=== PATIENT | male | born 1995 | race Caucasian/White ===

== ENCOUNTER 2018-04-07 18:26 | Emergency (ER) | payer OTHER, SELFPAY ==
[2018-04-07 18:27] VITALS: BP 134/86; PULSE 87; RESP 19; TEMP 37.2; O2SAT 97; BMI 33.0
[2018-04-07] MEDS: Ondansetron 4 MG/2 ML Vial IV (19:35)
[2018-04-07 19:36] LABS: Absolute Lymphocyte Count 3.76 X10^3/ul (0.83-4.51); Absolute Neutrophil Count 7.1 X10^3/uL (2.0-7.7); Basophil% 0.8 % (0-1); Eosinophil# 0.21 X10^3/uL; Eosinophils% 1.7 % (0-5); Hematocrit 43.1 % (40-54); Hemoglobin 15.1 g/dl (13.0-16.5); Lymphocyte # 3.76 X10^3/ul (4.0); Lymphocyte % 31.1 % (19-41); Mean Corpuscular Hgb 28.9 pg (27.0-32.0); Mean Corpuscular Volume 82.6 fL (80-94); Monocyte# 0.87 X10^3/uL; Monocyte% 7.2 % (0-10); Neutrophil # 7.13 X10^3/uL (2.7-7.7); Platelet Count 238 K/mm3 (150-450); RBC Distribution Width CV 12.8 % (11.6-14.6); RBC Distribution Width SD 38.5 fl (35.1-43.9); Red Blood Count 5.22 M/mm3 (4.6-6.2); White Blood Count 12.1 K/mm3 (4.4-11.0)
[2018-04-07] MEDS: Ketorolac 30 MG/ML Syringe IV (19:36)
[2018-04-07] MEDS: 0.9% Normal Saline 1,000 ML 250 ML IV (19:36)
[2018-04-07] MEDS: Morphine 4 MG/ML Syringe IV (19:36)
[2018-04-07 19:37] LABS: POSITIVE COUNT NO; POSITIVE DIFFERENTIAL NO; POSITIVE MORPHOLOGY NO
[2018-04-07 20:25] LABS: Anion Gap 11 (5-15); BUN 19 mg/dL (7-18); BUN/Creat Ratio 15.4 RATIO (10-20); Chloride 109 mmol/L (98-107); Creatinine, Serum 1.23 mg/dL (0.70-1.30); EST Glomerular Filtration Rate 77 mL/min (>60); Est Glom Filt Rate - Afr Amer 93 mL/min (>60); Estimated Creatinine Clearance 96.44 ml/min; Glucose 136 mg/dL (74-106); Potassium 3.9 mmol/L (3.5-5.1); Sodium Level 143 mmol/L (136-145)
[2018-04-07 20:44] LABS: Bacteria 0 SEEN /hpf (None Seen); Mucous, Urine 0 SEEN /hpf (<or=2+); Squamous Epithelial Cells - UA 0 SEEN /hpf (0-5)
[2018-04-07 20:46] LABS: Color, Urine Yellow (Yellow); Glucose, Dipstick Normal (Normal); Ketone-Dipstick 15 mg/dl (Negative); Leukocyte Esterase-Dipstick 25 /ul (Negative); Nitrite-Dipstick Negative (Negative); Occult Blood-Urine 250 /ul (Negative); Protein-Dipstick 30 mg/dl (Negative); Urine Clarity Cloudy (Clear); Urine Urobilinogen 1 mg/dl (Normal)
[2018-04-07 20:53] LABS: Urine Bilirubin Dipstick 1 mg/dL (Negative)
[2018-04-07 21:12] LABS: Red Blood Cells-Urine > 100 SEEN /hpf (0-5); White Blood Cells 0-5 SEEN /hpf (0-5)
--- NOTE | 2018-04-07 22:10 | ED.DCSUM_ITS ---
- ER Visit Summary Date of Service: 04/07/18 Chief Complaint: right flank pain History of Present Illness: The patient is a 22 M who presents for 1 hour of sudden severe right-sided flank pain. Patient was feeling well when he had sudden onset of right-sided flank pain. It is in the right flank radiating around into the right groin and right lower back. Patient vomited twice. He has had decreased urine output and noted his most recent urine was dark colored. He denies any fever but is sweaty with the pain. Patient has a remote history of one kidney stone. Physical Examination: Vital signs: afebrile, hemodynamically stable, no hypoxia on room air General: well nourished, well developed, appears very uncomfortable and is having difficulty staying still, sweaty Skin: warm, dry, no rash, no pallor HEENT: normocephalic and atraumatic; PERRL, EOMI, moist mucous membranes Cardiovascular: regular rate and rhythm without murmurs, no peripheral edema, 2 + pulses all distal extremities Respiratory: No increased work of breathing, lungs are clear to auscultation bilaterally, no rales, rhonchi or wheezing Abdominal: Abdomen is soft, right flank is tender with normoactive bowel sounds , no guarding or rebound, no masses MSK: Moves all extremities, no deformities, normal strength Neuro: Awake and alert, oriented ?4. No facial droop, sensation and motor function intact and symmetric Test Results: Abnormal Lab Results 04/07/18 04/07/18 04/07/18 18:38 18:38 20:01 WBC 12.1 H RBC 5.22 Hgb 15.1 Hct 43.1 MCV 82.6 MCH 28.9 MCHC 35.0 RDW 12.8 RDW Differential 38.5 Plt Count 238 MPV 12.0 Immature Gran % (Auto) 0.200 Neut % (Auto) 59.0 Lymph % (Auto) 31.1 [place] % (Auto) 7.2 Eos % (Auto) 1.7 Baso % (Auto) 0.8 Absolute Neuts (auto) 7.1 Absolute Lymphs (auto) 3.76 Total Counted Not Reportable Sodium Cancelled 143 Potassium Cancelled 3.9 Chloride Cancelled 109 H Carbon Dioxide Cancelled 23.0 Anion Gap Cancelled 11 BUN Cancelled 19 H Creatinine Cancelled 1.23 Estim Creat Clear Calc Cancelled 96.44 Est GFR (MDRD) Af Amer Cancelled 93 Est GFR (MDRD) Non-Af Cancelled 77 BUN/Creatinine Ratio Cancelled 15.4 Glucose Cancelled 136 H Calcium Cancelled 9.0 Urine Color Urine Clarity Urine pH Ur Specific [place] Urine Protein Urine Glucose (UA) Urine Ketones Urine Occult Blood Urine Nitrite Urine Bilirubin Urine Urobilinogen Ur Leukocyte Esterase Urine RBC Urine WBC Ur Squamous Epith Cells Urine Bacteria Urine Mucus 04/07/18 20:25 WBC RBC Hgb Hct MCV MCH MCHC RDW RDW Differential Plt Count MPV Immature Gran % (Auto) Neut % (Auto) Lymph % (Auto) [place] % (Auto) Eos % (Auto) Baso % (Auto) Absolute Neuts (auto) Absolute Lymphs (auto) Total Counted Sodium Potassium Chloride Carbon Dioxide Anion Gap BUN Creatinine Estim Creat Clear Calc Est GFR (MDRD) Af Amer Est GFR (MDRD) Non-Af BUN/Creatinine Ratio Glucose Calcium Urine Color Yellow Urine Clarity Cloudy Urine pH 7.0 Ur Specific [place] 1.010 Urine Protein 30 H Urine Glucose (UA) Normal Urine Ketones 15 H Urine Occult Blood 250 H Urine Nitrite Negative Urine Bilirubin 1 H Urine Urobilinogen 1 H Ur Leukocyte Esterase 25 H Urine RBC > 100 SEEN Urine WBC 0-5 SEEN Ur Squamous Epith Cells 0 SEEN Urine Bacteria 0 SEEN Urine Mucus 0 SEEN Clinical Impression(s) from Imaging Studies Abdomen/Pelvis CT 04/07/18 19:23 IMPRESSION: 1. A 2 mm stone in the right proximal ureter, with mild right hydronephrosis. Otherwise, unremarkable study. Electronically Signed: Clementine Wang MD at 20:14 EDT Tel , Service support , Medications Given Discontinued Medications Hydrocodone Bitart/Acetaminophen ([place] 5mg-325mg) 1 tablet PO X1 ONE Stop: 04/07/18 22:08 Last Admin: 04/07/18 22:27 Dose: 1 tablet Sodium Chloride () 1,000 mls @ 250 mls/hr IV .Q4H SVETLANA Last Admin: 04/07/18 19:36 Dose: 250 mls/hr Ketorolac Tromethamine (Toradol) 30 mg IV X1 ONE Stop: 04/07/18 19:24 Last Admin: 04/07/18 19:36 Dose: 30 mg Morphine Sulfate () 4 mg IV X1 ONE Stop: 04/07/18 19:24 Last Admin: 04/07/18 19:36 Dose: 4 mg Ondansetron HCl (Zofran) 4 mg IV X1 ONE Stop: 04/07/18 19:24 Last Admin: 04/07/18 19:35 Dose: 4 mg Ondansetron HCl (Zofran Odt) 4 mg PO TAKE HOME MED ONE Stop: 04/07/18 22:09 Last Admin: 04/07/18 22:27 Dose: 4 mg Emergency Department Course and Treatment: Patient presents with symptoms that are most consistent with ureteral colic. Patient was given Toradol, Zofran and morphine for symptomatic relief with good improvement in his pain. Patient had mild leukocytosis of 12. Urine was positive for hematuria but negative for infection. Patient was afebrile. CT flank showed a 2 mm proximal right ureteral stone. After receiving pain medication, patient was much more comfortable and had symptoms mostly resolved with the occasional sharp pain. Patient was given a urine strainer. He was given a prescription for naproxen, [place] and Zofran. He was discharged home with return precautions and follow-up with urology. Treatment Plan: [] Disposition: [] Impression: right ureteral stone, 2 mm, with ureteral colic This note was generated with [employer] dictation software. It may contain incorrect words, spelling, and punctuation that were not noted in review of the chart prior to signing ED Disposition - Plan for ED Patient: Disposition: Home or Assisted Living Chief Complaint: Flank Pain Instructions: ED Stone Renal W Colic Prescriptions: Ondansetron [Zofran Odt] 4 mg PO Q8H PRN PRN #10 tab PRN Reason: Nausea Hydrocodone/Acetaminophen [[place] 5-325 Tablet] 1 - 2 ea PO 4X/DAY PRN PRN 3 Days #12 tab PRN Reason: Pain Naproxen [Naprosyn] 500 mg PO BID PRN #20 tab Referrals: Bienvenido Hansen III, MD [Primary Care Provider] - 3-5 Days if not improving Aidan Kauffman MD [STAFF PHYSICIAN] - 1 Week if not improving Additional Instructions: You are passing a kidney stone on the right. Use the pain medications as prescribed as needed. [place] the [place] for severe pain. Use the Zofran as needed for nausea. If your pain is not well controlled on these medications at home or if you have any other concerns such as high fever, vomiting, inability to urinate, or other concerns, return to emergency department immediately for another evaluation.
[2018-04-07] MEDS: HYDROcodone Bitartrate/Apap 5/325 Tablet PO (22:27)
[2018-04-07] MEDS: Ondansetron ODT 4 MG Tablet PO (22:27)
[2018-04-07 22:29] VITALS: RESP 14
== END 2018-04-07 22:30 | disposition home or self-care (01) ==
PROVIDERS: Emergency Provider Emergency Medicine; Family Provider Family Medicine; PCP Family Medicine
DX: N13.2 Hydronephrosis with renal and ureteral calculous obstruction (principal); R31.9 Hematuria, unspecified; Z87.442 Personal history of urinary calculi
CPT/HCPCS: 74176; 80048; 81001; 85025; 96361; 96374; 96375; 99283; J7030; A4216; J2405

== ENCOUNTER 2018-04-09 10:15 | Observation (INO) | payer OTHER, BC, SELFPAY ==
[2018-04-09 10:17] VITALS: BP 156/106; PULSE 62; RESP 20; TEMP 36.5; BMI 32.3
[2018-04-09 10:36] LABS: Absolute Lymphocyte Count 1.13 X10^3/ul (0.83-4.51); Absolute Neutrophil Count 12.6 X10^3/uL (2.0-7.7); Basophil# 0.06 X10^3/uL; Basophil% 0.4 % (0-1); Eosinophil# 0.06 X10^3/uL; Eosinophils% 0.4 % (0-5); Hematocrit 42.6 % (40-54); Hemoglobin 15.3 g/dl (13.0-16.5); Lymphocyte # 1.13 X10^3/ul (4.0); Lymphocyte % 7.6 % (19-41); Mean Corp Hgb Conc 35.9 g/gl (32-36); Mean Corpuscular Volume 80.8 fL (80-94); Mean Platelet Vol. 11.5 fl (6.2-12.0); Monocyte# 1.06 X10^3/uL; Monocyte% 7.1 % (0-10); Neutrophil # 12.56 X10^3/uL (2.7-7.7); Neutrophil % 84.2 % (47-70); POSITIVE COUNT NO; POSITIVE DIFFERENTIAL NO; POSITIVE MORPHOLOGY NO; Platelet Count 233 K/mm3 (150-450); RBC Distribution Width CV 12.7 % (11.6-14.6); RBC Distribution Width SD 37.4 fl (35.1-43.9); Red Blood Count 5.27 M/mm3 (4.6-6.2); White Blood Count 14.9 K/mm3 (4.4-11.0)
[2018-04-09] MEDS: 0.9% Normal Saline 1,000 ML 125 ML IV (10:40)
[2018-04-09] MEDS: Ondansetron 4 MG/2 ML Vial IV ×2 (10:40→13:18)
[2018-04-09] MEDS: Ketorolac 30 MG/ML Syringe IV ×3 (10:40→21:46)
[2018-04-09] MEDS: HYDROmorphone 1 MG/ML Syringe IV (10:40)
[2018-04-09 10:53] LABS: Anion Gap 9 (5-15); BUN 12 mg/dL (7-18); BUN/Creat Ratio 9.4 RATIO (10-20); Calcium,Total 8.7 mg/dL (8.5-10.1); Chloride 105 mmol/L (98-107); Creatinine, Serum 1.27 mg/dL (0.70-1.30); EST Glomerular Filtration Rate 74 mL/min (>60); Est Glom Filt Rate - Afr Amer 90 mL/min (>60); Estimated Creatinine Clearance 93.41 ml/min; Glucose 110 mg/dL (74-106); Potassium 3.9 mmol/L (3.5-5.1); Sodium Level 140 mmol/L (136-145)
[2018-04-09 12:15] LABS: Bacteria 0 SEEN /hpf (None Seen); Mucous, Urine 0 SEEN /hpf (<or=2+); Red Blood Cells-Urine 0 SEEN /hpf (0-5); Squamous Epithelial Cells - UA 0 SEEN /hpf (0-5); White Blood Cells 0 SEEN /hpf (0-5)
[2018-04-09 12:17] LABS: Color, Urine Yellow (Yellow); Glucose, Dipstick 50 mg/dl (Normal); Ketone-Dipstick 5 mg/dl (Negative); Leukocyte Esterase-Dipstick Negative /ul (Negative); Nitrite-Dipstick Negative (Negative); Occult Blood-Urine Negative /ul (Negative); Protein-Dipstick Negative (Negative); Specific Gravity, Urine 1.015 (1.002-1.030); Urine Bilirubin Dipstick Negative (Negative); Urine Clarity Sl. Cloudy (Clear); Urine Urobilinogen Normal (Normal)
[2018-04-09 12:23] LABS: Amorphous Sediment 1+
--- NOTE | 2018-04-09 12:47 | ED.VISSUMM ---
- ER Visit Summary Date of Service: 04/09/18 Chief Complaint: [Right flank pain] History of Present Illness: The patient is a 22 M [presents the emergency department with right flank pain ?2 days. Patient was seen in the emergency department 2 days ago and diagnosed with a right-sided kidney stone in the distal ureter measuring 2 mm. Patient was sent home with Naprosyn and [place] for pain however patient states that today the pain is not controlled and he vomited ?2 this morning. Patient denies any fever. He denies any blood in his urine. Patient states he has had kidney stones in the past and had to be admitted for pain control.] Physical Examination: [HEENT-PERRLA, EOMI. Cranial nerves II through XII grossly intact. TMs clear. Mucous membranes moist. No adenopathy. Cardiovascular-regular rate and rhythm without murmur or ectopy Lungs-clear to auscultation, chest wall stable without crepitus or subcu emphysema Abdomen-normoactive bowel sounds, soft. Patient does have tenderness palpation over right lower quadrant he has CVA tenderness on the right. There is no rebound, rigidity, or perineal signs. Extremities-intact ?4, normal range of motion, normal pulses, atraumatic] Test Results: [CBC with differential obtained showed a white count of 14.9, hemoglobin 15, hematocrit 43, platelets 233. Chemistries unremarkable. Urinalysis showed no evidence of infection.] Emergency Department Course and Treatment: [Patient was medicated with Toradol as well as Dilaudid and had good pain relief.] Treatment Plan: [Admit for pain control] Disposition: [Admit] Impression: [Kidney stone with colic Intractable pain-failed outpatient therapy] This note was generated with [employer] dictation software. It may contain incorrect words, spelling, and punctuation that were not noted in review of the chart prior to signing ED Disposition - Plan for ED Patient: Chief Complaint: Flank Pain Referrals: Bienvenido Hansen III, MD [Primary Care Provider] -
--- NOTE | 2018-04-09 12:49 | NURSING ---
315 OBS URETERIC COLIC REID
[2018-04-09 13:02] VITALS: BP 134/99; PULSE 76; RESP 14; O2SAT 99
[2018-04-09 13:30] VITALS: BMI 32.0
[2018-04-09 13:32] VITALS: BP 141/92; PULSE 94; RESP 16; TEMP 36.9; O2SAT 100
--- NOTE | 2018-04-09 14:46 | PCM.HP.STD ---
History of Present Illness Date of Admission: 04/09/18 The patient is a 22 year old M with a h/o kidney stones. presented to the ED 2 days ago with right sided flank pain and colic radiating to the groin. Was treated with analgesics and sent home on the same. Today pain became more severe with associated nausea and vomiting and unable to take his medications. He denies any fever or chills. had some difficulty urinating today with some dribbling. Never had any dysuria or hematuria Has been medicated at this time and is fairly comfortable.[] Past Medical History Allergies Sulfa (Sulfonamide Antibiotics) Allergy (Verified 04/09/18 10:16) Hives Home Medications: Ambulatory Orders Medication Instructions Recorded Hydrocodone/Acetaminophen [[place] 1 - 2 ea PO 4X/DAY PRN PRN 3 Days 04/07/18 5-325 Tablet] #12 tab Naproxen [Naprosyn] 500 mg PO BID PRN #20 tab 04/07/18 Ondansetron [Zofran Odt] 4 mg PO Q8H PRN PRN #10 tab 04/07/18 Smoking Status: Never smoker - *Family History Paternal History Items: - - kidney stones in father Review of Systems Constitutional: Denies: Anorexia, Chills, Fever, Night Sweats, Malaise, Weakness Cardiovascular: Denies: Chest Pain, Claudication, Chest Tightness Respiratory: Denies: Cough, Shortness of breath upon exertion Gastrointestinal: Reports: Nausea, Vomiting. Denies: Constipation, Diarrhea Genitourinary: Reports: Hesitancy, Retention. Denies: Dysuria Musculoskeletal: Denies: Arm Pain VTE Information - Inpt Only VTE Present on Admission: Yes - Physical Exam General: Alert, Oriented x3, Cooperative, No apparent distress, Well developed, Well nourished HEENT: Atraumatic Oral: Moist Mucosa Neck: Supple Lungs: Clear to auscultation Cardiovascular: Regular rate, Regular Rhythm, Normal S1, Normal S2, No murmurs, No Ectopic Activity, PMI Normal, No rub noted, No Gallop Abdomen: Bowel Sounds Present, Soft, Non Tender, Non-Distended, No Hepato-splenomegaly Extremities: No clubbing, No edema Skin: No rashes Musculoskeletal: No Tenderness to Palpation of Joints or Extremities Neurological: Cranial nerves II-XII grossly intact, Neuro grossly intact, Motor Exam 5/5 strength throughout Psych/Mental Status: Normal Affect, Appropriate Vital Signs Temp Pulse Resp BP Pulse Ox 98.4 F 94 16 141/92 H 100 04/09/18 13:32 04/09/18 13:32 04/09/18 13:32 04/09/18 13:32 04/09/18 13:32 Oxygen Delivery Method Room Air Weight: 101.151 kg Body Mass Index (BMI) 32.0 Assessment/Plan 1. Right sided ureteric colic secondary to ureteric calculus. CT showed 2mm stone in mid ureter. Do not expect this ti cause as much pain as patient describes Will continue with analgesics and IV fluids. Flomax to assist with passage. Antiemetics and other supportive care Encouraged to optimal and adequate hydration to help prevent future occurrences. Possibly discharge tomorrow 2. Obesity. Will cruise counselor on weight loss and lifestyle modifications 3. DVT prophylaxis. low risk. Encourage ambulation Code Visit OBSV E&M: 89291 Initial observation care L3
[2018-04-09] MEDS: Lactated Ringers 1,000 ML 125 ML IV (16:08)
[2018-04-09] MEDS: Tamsulosin HCl 0.4 MG Capsule PO (16:09)
--- NOTE | 2018-04-09 18:05 | NURSING ---
Walking to bathroom at this time. Denies further needs.
[2018-04-09 21:30] VITALS: BP 133/73; PULSE 83; RESP 16; TEMP 37.7; O2SAT 95
[2018-04-10 04:00] VITALS: BP 139/73; PULSE 83; RESP 16; TEMP 37.2; O2SAT 96
[2018-04-10] MEDS: Ketorolac 30 MG/ML Syringe IV ×2 (04:03→09:48)
[2018-04-10 06:11] LABS: Absolute Lymphocyte Count 1.34 X10^3/ul (0.83-4.51); Absolute Neutrophil Count 4.6 X10^3/uL (2.0-7.7); Basophil# 0.05 X10^3/uL; Basophil% 0.7 % (0-1); Eosinophil# 0.15 X10^3/uL; Eosinophils% 2.1 % (0-5); Hematocrit 39.3 % (40-54); Hemoglobin 13.8 g/dl (13.0-16.5); Lymphocyte # 1.34 X10^3/ul (4.0); Lymphocyte % 18.7 % (19-41); Mean Corp Hgb Conc 35.1 g/gl (32-36); Mean Corpuscular Hgb 28.6 pg (27.0-32.0); Mean Corpuscular Volume 81.5 fL (80-94); Mean Platelet Vol. 11.5 fl (6.2-12.0); Monocyte# 0.97 X10^3/uL; Monocyte% 13.5 % (0-10); Neutrophil # 4.63 X10^3/uL (2.7-7.7); Neutrophil % 64.7 % (47-70); Platelet Count 189 K/mm3 (150-450); RBC Distribution Width CV 12.7 % (11.6-14.6); RBC Distribution Width SD 37.1 fl (35.1-43.9); Red Blood Count 4.82 M/mm3 (4.6-6.2); White Blood Count 7.2 K/mm3 (4.4-11.0)
[2018-04-10 06:23] LABS: POSITIVE COUNT NO; POSITIVE DIFFERENTIAL NO; POSITIVE MORPHOLOGY NO
[2018-04-10] MEDS: 0.9% NaCl Peripheral Flush Adult/Peds IV (09:52)
[2018-04-10 09:57] VITALS: BP 132/75; PULSE 75; RESP 18; TEMP 37; O2SAT 98
--- NOTE | 2018-04-10 13:36 | PCM.DC ---
- Discharge Diagnoses Current Active Problems: acute ureteric colic You will use the following diet at home:: No restrictions, Regular Your food should be the consistency of: Regular Your liquids should be the consistency of: Regular/Thin Discharge Activity: Return to Normal Activity, No Restrictions, May Drive Return to work on:: 04/12/18 Additional Instructions: Drink losts and lots of water Allergies/Adverse Reactions: Allergies Sulfa (Sulfonamide Antibiotics) Allergy (Verified 04/09/18 10:16) Hives Medications to take at Discharge Ketorolac [Toradol] 10 mg PO TID #9 tab 04/10/18 proMETHazine tablet [Phenergan tablet] 25 mg PO Q8H PRN PRN #9 tab 04/10/18 The following prescriptions were given: proMETHazine tablet [Phenergan tablet] 25 mg PO Q8H PRN PRN #9 tab PRN Reason: Nausea/Vomiting Ketorolac [Toradol] 10 mg PO TID #9 tab Primary Care Physician: Bienvenido Hansen III, MD [Primary Care Provider] - Please follow up with your Primary Care Physician in: 1-2 weeks Test Results: Test results from this visit will be discussed in further detail at your follow-up appointment, if applicable. Proposed Discharge Date: 04/10/18
--- NOTE | 2018-04-10 13:38 | PCM.DC.SUM ---
Discharge Date and Diagnosis Date of Admission: 04/09/18 Date of Discharge: 04/10/18 - Primary Discharge Diagnosis ureteric calculus ureteric colic - Secondary Discharge Diagnosis urolithiasis Morbid Obesity Hospital Course and Treatment Operations: None Procedures: None Summary of Care Provided: The patient is a 22 year old M admitted on account of recurrent right sided ureteric colic. CT of the abdomen and pelvis had shown a 2mm stone in the mid ureter. Patient was treated with IV fluids and analgesics and antiemetics and flomax. Today patient is doing a whole lot better and is stable and able to be discharged.[] Discharge Diet: No Restrictions Discharge Activity: Return to Normal Activity, No Restrictions, May Drive Return to work on:: 04/12/18 Home Medications: Medications to take at Discharge Ketorolac [Toradol] 10 mg PO TID #9 tab 04/10/18 proMETHazine tablet [Phenergan tablet] 25 mg PO Q8H PRN PRN #9 tab 04/10/18 Following Prescrptions Were Given to Patient: proMETHazine tablet [Phenergan tablet] 25 mg PO Q8H PRN PRN #9 tab PRN Reason: Nausea/Vomiting Ketorolac [Toradol] 10 mg PO TID #9 tab Primary Care Physician: Bienvenido Hansen III, MD [Primary Care Provider] - Please follow up with your Primary Care Physician in: 1-2 weeks Minutes spent on discharge:: 30 Patient Condition:: Good Medical Necessity - Tobacco Use Smoking Status: Never smoker Meaningful Use Info Meaningful Use Diagnoses (Choose all that apply): None applicable Code Visit OBSV E&M: 99983 Observation care discharge
[2018-04-10 15:03] VITALS: BP 150/80; PULSE 89; RESP 18; O2SAT 98
== END 2018-04-10 15:06 | disposition home or self-care (01) ==
LOC: ED 10:30 → MS3 12:54
PROVIDERS: Admitting Provider Internal Medicine; Emergency Provider Emergency Medicine; Family Provider Family Medicine; PCP Family Medicine; Visit Provider Internal Medicine
DX: N20.1 Calculus of ureter (principal); E66.01 Morbid (severe) obesity due to excess calories; Z68.32 Body mass index [BMI] 32.0-32.9, adult; Z71.3 Dietary counseling and surveillance; Z87.442 Personal history of urinary calculi; Z79.899 Other long term (current) drug therapy
CPT/HCPCS: 36415; 80048; 81001; 85025; 96361; 96374; 96375; 96376; 97802; 99218; 99284; J7030; J7120; A4216; G0378; J2405

== ENCOUNTER 2019-12-09 22:38 | Emergency (ER) | payer OTHER, SELFPAY ==
[2019-12-09 22:39] VITALS: BP 151/98; PULSE 89; RESP 16; TEMP 37; O2SAT 100; BMI 34.4
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
== END 2019-12-10 00:37 | disposition home or self-care (01) ==
LOC: ED 12-10 00:01
PROVIDERS: Emergency Provider Emergency Medicine; PCP Family Medicine
DX: S06.0X9A Concussion with loss of consciousness of unspecified duration, initial encounter (principal); S63.502A Unspecified sprain of left wrist, initial encounter; S00.83XA Contusion of other part of head, initial encounter; S00.31XA Abrasion of nose, initial encounter; M54.2 Cervicalgia; V86.55XA Driver of 3- or 4- wheeled all-terrain vehicle (ATV) injured in nontraffic accident, initial encounter; Y93.9 Activity, unspecified; Y92.9 Unspecified place or not applicable; Y99.9 Unspecified external cause status
CPT/HCPCS: 70450; 72125; 73110; 99282

== ENCOUNTER 2020-11-06 17:06 | Emergency (ER) | payer OTHER, SELFPAY ==
[2020-11-06 17:07] VITALS: BP 141/108; PULSE 89; RESP 18; TEMP 37.4; O2SAT 98; BMI 34.4
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
--- NOTE | 2020-11-06 17:15 | ED.DCSUM_ITS ---
History of Present Illness Chief Complaint: Abd Pain Informant: Patient Onset: Today Context: Sudden Onset Quality: Sharp and stabbing Location: Left lower quadrant Current Severity: Moderate Maximum Severity: Severe Narrative: Patient presents with rather abrupt onset of sharp stabbing chest pain to the left lower quadrant approximate hour prior to arrival. He states overall he has not felt well for the past week with some body aches. Last evening he had a brief episode of pain to the left lower quadrant but it spontaneously resolved. He denies fever or chills. No cough. - Past Medical History (1) Kidney stones Status: Resolved Past Medical History - Allergies and Home Meds Allergies/Adverse Reactions: Allergies Sulfa (Sulfonamide Antibiotics) Allergy (Verified 11/06/20 17:09) Hives Primary Care Physician: Bienvenido Hansen III, MD [Primary Care Provider] - Prior records reviewed: Yes Smoking Status: Never smoker - Family History Paternal Family History: Reports: - - kidney stones in father Review of Systems General: Denies: Chills, Fever Eyes: Denies: Visual changes - bilaterally ENT: Denies: Bilateral ear pain Cardiovascular: Denies: Chest pain Respiratory: Denies: Dyspnea, Cough Gastrointestinal: Reports: Abdominal pain. Denies: Vomiting, Diarrhea Genitourinary: Denies: Dysuria Musculoskeletal: Denies: Swelling, Extremity Pain Skin: Denies: Rash Hematologic: Denies: Easy bruising, Easy bleeding Allergy: Denies: Uticaria Physical Exam Vital Signs/Narrative: Vital Signs Temp Pulse Resp BP Pulse Ox 11/06/20 17:07 99.4 F H 89 18 141/108 H 98 Inital Vital Signs reviewed: Yes General: Well nourished, Well developed Head: Normocephalic ENT: Moist mucous membranes Neck: Supple Cardiovascular: Regular rate, Regular rhythm Respiratory: No distress, CTA bilaterally Abdomen: Soft, Tender - Mild tenderness left lower quadrant. No guarding or rebound., Hypoactive bowel sounds Back: Negative for: CVA tenderness Extremities: Nontender Skin: Normal color, No rash Neurological: Alert, Oriented x3 Psychological: - - Anxious Diagnostic/Tx/Re-eval Impressions Abdomen/Pelvis CT 11/06/20 17:15 IMPRESSION: Nonobstructive right renal stone. Electronically Signed: Sumit Thomas DO at 19:10 EDT Tel [phone], Service support , 11/06/20 17:15 Abdomen/Pelvis without Cont [CT] Stat Laboratory Results 11/06/20 11/06/20 11/06/20 17:35 17:35 18:15 WBC 3.7 L RBC 4.98 Hgb 13.9 Hct 41.2 MCV 82.7 MCH 27.9 MCHC 33.7 RDW Std Deviation 37.3 RDW Coeff of Walter 12.3 Plt Count 162 MPV 11.2 Immature Gran % (Auto) 1.400 H Neut % (Auto) 42.6 L Lymph % (Auto) 40.5 [place] % (Auto) 13.0 H Eos % (Auto) 1.4 Baso % (Auto) 1.1 H Absolute Neuts (auto) 1.6 L Absolute Lymphs (auto) 1.50 Nucleated RBC % 0 Differential Comment SCANNED Sodium 139 Potassium 3.6 Chloride 102 Carbon Dioxide 31.0 Anion Gap 6 BUN 9 Creatinine 1.00 Estim Creat Clear Calc 115.58 Est GFR (MDRD) Af Amer 116 Est GFR (MDRD) Non-Af 96 BUN/Creatinine Ratio 9.0 L Glucose 134 H Calcium 8.7 Urine Color Yellow Urine Clarity Clear Urine pH 7.0 Ur Specific [place] 1.010 Urine Protein 15 H Urine Glucose (UA) Normal Urine Ketones Negative Urine Occult Blood 10 H Urine Nitrite Negative Urine Bilirubin Negative Urine Urobilinogen 4 H Ur Leukocyte Esterase Negative Urine RBC 0 SEEN Urine WBC 0-5 SEEN Ur Squamous Epith Cells 0 SEEN Urine Bacteria 2+ Urine Mucus 0 SEEN - Medical Decision Making Patient was given morphine, Toradol, Zofran, and IV fluids. On repeat evaluation pain is significantly improved. Blood work reveals low white count more consistent with a viral infection. CT flank is read as right renal stone. Spleen does look slightly enlarged to me on review of images. In light of this mono spot test was obtained. This test is pending and I will call him with the results. Patient does have travel planned in the next couple of days. We will also do a rapid Covid and sent on him. Test results discussed with patient as well as family at bedside. He will be written for naproxen for pain control. ED Disposition - Plan for ED Patient: Disposition: Home or Assisted Living Diagnosis: Viral syndrome Instructions: ED Viral Syndrome (Adult) Prescriptions: Naproxen [Naprosyn] 500 mg PO BID PRN PRN #20 tablet PRN Reason: Pain Score 4-10 Transmission Status: Pending to [facility] Referrals: Bienvenido Hansen III, MD [Primary Care Provider] - 1 Week if not improving
[2020-11-06 17:17] VITALS: BP 151/96; PULSE 85; RESP 16; O2SAT 100
[2020-11-06] MEDS: Ketorolac 30 MG/ML Syringe IV (17:31)
[2020-11-06] MEDS: 0.9% Normal Saline 1,000 ML 1000 ML IV (17:31)
[2020-11-06] MEDS: Ondansetron 4 MG/2 ML Vial IV (17:31)
[2020-11-06] MEDS: Morphine 4 MG/ML Syringe IV (17:31)
[2020-11-06 18:00] LABS: Absolute Neutrophil Count 1.6 X10^3/uL (2.0-7.7); Basophil# 0.04 X10^3/uL; Basophil% 1.1 % (0-1); Eosinophil# 0.05 X10^3/uL; Eosinophils% 1.4 % (0-5); Hematocrit 41.2 % (40-54); Hemoglobin 13.9 g/dL (13.0-16.5); Lymphocyte % 40.5 % (19-41); Mean Corp Hgb Conc 33.7 g/dL (32-36); Mean Corpuscular Hgb 27.9 pg (27.0-32.0); Mean Corpuscular Volume 82.7 fL (80-94); Mean Platelet Vol. 11.2 fl (6.2-12.0); Monocyte# 0.48 X10^3/uL; NRBC Flagged by Analyzer 0 % (0-5); Neutrophil # 1.58 X10^3/uL (2.7-7.7); Neutrophil % 42.6 % (47-70); POSITIVE MORPHOLOGY YES; Platelet Count 162 K/mm3 (150-450); RBC Distribution Width CV 12.3 % (11.6-14.6); RBC Distribution Width SD 37.3 fl (35.1-43.9); Red Blood Count 4.98 M/mm3 (4.6-6.2); White Blood Count 3.7 K/mm3 (4.4-11.0)
[2020-11-06 18:05] LABS: Anion Gap 6 (5-15); BUN 9 mg/dL (7-18); Calcium,Total 8.7 mg/dL (8.5-10.1); Chloride 102 mmol/L (98-107); EST Glomerular Filtration Rate 96 mL/min (>60); Est Glom Filt Rate - Afr Amer 116 mL/min (>60); Estimated Creatinine Clearance 115.58 ml/min; Glucose 134 mg/dL (74-106); Potassium 3.6 mmol/L (3.5-5.1); Sodium Level 139 mmol/L (136-145)
[2020-11-06 18:11] LABS: Differential Indicated SCAN CRITERIA MET
[2020-11-06 18:21] LABS: Mucous, Urine 0 SEEN /hpf (<or=2+); Red Blood Cells-Urine 0 SEEN /hpf (0-5); Squamous Epithelial Cells - UA 0 SEEN /hpf (0-5)
[2020-11-06 18:25] LABS: Differential Comment SCANNED
[2020-11-06 18:36] LABS: Color, Urine Yellow (Yellow); Glucose, Dipstick Normal (Normal); Ketone-Dipstick Negative (Negative); Leukocyte Esterase-Dipstick Negative /ul (Negative); Nitrite-Dipstick Negative (Negative); Occult Blood-Urine 10 /ul (Negative); Protein-Dipstick 15 mg/dl (Negative); Urine Bilirubin Dipstick Negative (Negative); Urine Clarity Clear (Clear); Urine Urobilinogen 4 mg/dl (Normal)
[2020-11-06 18:55] LABS: Bacteria 2+ /hpf (None Seen); White Blood Cells 0-5 SEEN /hpf (0-5)
[2020-11-06 19:11] VITALS: BP 152/83; PULSE 92; RESP 15; O2SAT 97
[2020-11-06 19:33] VITALS: BP 132/71; PULSE 79; RESP 16; O2SAT 98
[2020-11-06 19:55] LABS: Internal QC Validated? YES +Cl - CLEAR BKGD; Monotest Negative (Negative)
== END 2020-11-06 19:33 | disposition home or self-care (01) ==
PROVIDERS: Emergency Provider Emergency Medicine; PCP Family Medicine
DX: B34.9 Viral infection, unspecified (principal); R10.32 Left lower quadrant pain; Z87.442 Personal history of urinary calculi
CPT/HCPCS: 74176; 80048; 81001; 85025; 86308; 87426; 96374; 96375; 99283; A4216; J2405

== ENCOUNTER 2021-05-10 22:21 | Emergency (ER) | payer OTHER, SELFPAY ==
[2021-05-10 22:22] VITALS: BP 120/76; PULSE 98; RESP 24; TEMP 37; O2SAT 96; BMI 32.5
[2021-05-10 22:24] VITALS: BP 120/76; PULSE 97; RESP 24; TEMP 37; O2SAT 94
--- NOTE | 2021-05-10 23:10 | ED.VIS.DYS ---
HPI History of Present Illness Chief Complaint: Shortness of Breath Informant: patient and family Onset/Context/Timing Onset: Today Context: gradual Timing: Continuous Current Severity: Mild Maximum Severity: Mild Worsened by: Exertion Relieved by: Rest Associated Symptoms cough; Negative for sore throat Chest Pain: Positive for None Narrative Narrative: 25-year-old male no significant past medical history. On was diagnosed with Covid at her area urgent care. Is currently on no medications. Complaint shortness of breath. Denies any hemoptysis. No history of asthma or COPD. Non-smoker. Patient is unvaccinated. PE Risk Factors: Negative for Cancer, OCP + Smoking + > 35, Prior DVT or PE, Recent immobilization, Recent surgery and Recent travel Prior similar symptoms: No Recent Illness/Hospitalization: No PFSH PFSH Medical History no medical history no medical history Home Medications naproxen 500 mg PO BID PRN PRN #20 tablet 11/06/20 [Rx Last Taken Unknown] azithromycin [Zithromax] 250 mg PO DAILY 4 Days #4 tab 05/11/21 [Rx Last Taken Unknown] dexamethasone [Decadron] 6 mg PO DAILY 7 Days #7 tab 05/11/21 [Rx Last Taken Unknown] Allergy/AdvReac Type Severity Reaction Status Date / Time Sulfa (Sulfonamide Allergy Hives Verified 11/06/20 17:09 Antibiotics) Social History Smoking Status: Never smoker ROS ROS ED ROS Narrative Covid with cough, fever, chills last and body aches. Also shortness of breath. Review of Systems ROS Unobtainable: Denies due to encephalopathy Constitutional Constitutional ED: Reports chills and fever(s) Eyes Eyes: Denies change in vision ENT ENT ED: Denies ear pain Cardiovascular Cardiovascular: Denies chest pain Respiratory/Chest Respiratory/Chest: Reports cough and dyspnea Gastrointestinal Gastrointestinal: Denies abdominal pain, diarrhea, nausea or vomiting Genitourinary Genitourinary ED: Denies dysuria Musculoskeletal Musculoskeletal: Reports myalgias Integumentary Denies rash Neurologic Neurologic: Denies headache(s) Psychiatric Psychiatric: Denies depression Endocrine Endocrinology: Denies polyuria Hematologic/Lymphatic Hematologic/Lymphatic: Denies easy bruising Allergic/Immunologic Allergic/Immunologic ED: Denies urticaria EXAM Physical Exam Narrative Exam Narrative: Young man no acute distress vital signs stable afebrile. Pulse ox on room air is 94 to 96%. He does not look septic or toxic. HEENT exam unremarkable. Moist extremities. Neck nontender. Lungs clear to auscultation bilaterally. Heart regular rhythm rate about 95 no murmur. Abdomen soft nontender. Moving all 4 extremities. No edema. Otherwise exam unremarkable. Const Vital Signs: 05/10/21 22:22 05/10/21 22:24 Temperature 98.6 F 98.6 F Temperature Source Temporal Temporal Pulse Rate 98 97 Respiratory Rate 24 H 24 H Blood Pressure 120/76 120/76 Blood Pressure Mean 90 90 Pulse Ox 96 94 Oxygen Delivery Method Room Air Room Air Positive well nourished and well developed General Appearance ED: well developed and NAD HEENT Reports moist mucous membranes atraumatic; Negative for trauma or tenderness Eyes PERRL and EOMs intact bilaterally Neck no lymphadenopathy, supple, no meningeal signs and no JVD General: Negative for tenderness Resp normal respiratory effort and clear to auscultation bilaterally Auscultation: Negative for rales, rhonchi or wheezes Cardio regular rate, regular rhythm, S1 normal heart sound, S2 normal heart sound and no murmurs GI non-tender, non-distended and no masses Auscultation: normoactive bowel sounds Palpation: soft; Negative for tender, guarding or rebound tenderness present Back/Spine no CVA tenderness and normal to inspection General Back: Negative for CVA tenderness Extremity normal to inspection General Extremety ED: Negative for edema or tenderness General Extremity: Negative for edema Neuro oriented x3 and CN's II-XII intact bilaterally Sensorium / Orientation: alert, oriented to person, oriented to place and oriented to time; Negative for orientation impaired, confused, lethargic or stuporous Motor Exam: strength 5/5 throughout Psych mental status grossly normal Mood & Affect: Negative for depressed Thought Process: normal thought process Skin no wounds Lesions: no lesions Rashes: no rashes MDM MDM MDM Narrative Medical decision making narrative: Patient diagnosed with Covid on . Complaint shortness of breath. Exam benign. Pulse ox mid 90s. Chest x-ray being obtained. Patient does not look like a candidate for home oxygen. Nor admission. May be started on Decadron. Repeat exam unchanged patient is doing well at 12:16 AM will be discharged home. I did go over the x-ray with both he and his family. Radiography Chest X-Ray - ED: 1 View and Read by ED Physician Diagnostic Testing: Radiology Impression Chest X-Ray 05/10/21 23:12 IMPRESSION: Bilateral perihilar pneumonias. Electronically Signed: Randall Buitrago MD at 23:34 EDT Tel , Service support , Portable single view chest x-ray interpreted by myself and the radiologist is consistent with bilateral infiltrates which may be from Covid pneumonitis or possibly secondary pneumonia. Patient's vital signs are stable is not hypoxic I will treat him with Zithromax and Decadron he will be discharged home. Discharge Plan Triage Chief Complaint: Shortness of Breath ED Provider: Stanislav Romo Dx/Rx/DC Orders Clinical Impression: COVID-19 Instructions: Human Coronaviruses Prescriptions: New dexamethasone [Decadron] 6 mg tablet 6 mg PO DAILY 7 Days Qty: 7 RF: 0 azithromycin [Zithromax] 250 mg tablet 250 mg PO DAILY 4 Days Qty: 4 RF: 0 No Action naproxen 500 MG tablet 500 mg PO BID PRN PRN (Reason: Pain Score 4-10) Qty: 20 RF: 0 Primary Care Provider: Care Physician,No Primary Referrals: Diony Hampton MD [STAFF PHYSICIAN] - 3-5 Days if not improving Care Physician,No Primary [Primary Care Provider] - Activity Restrictions/Additional Instructions: Plenty of fluids and rest. Tylenol and Motrin for any fevers. Follow-up if not improving. Return if worse. Daily Decadron which is a steroid to help with the inflammation in your lungs. I also put you on an antibiotic Zithromax which will take 1 a day starting tomorrow for 4 more days in case you have a secondary pneumonia. 10 days of quarantine from the onset of your Covid symptoms. Disposition Disposition: Home, Self Care
--- NOTE | 2021-05-10 23:12 | RAD_ITS ---
STUDY: X-RAY CHEST REASON FOR EXAM: Male, 25 years old. Covid TECHNIQUE: Portable, upright, AP chest radiograph COMPARISON: 08/20/2014 FINDINGS: Bilateral perihilar consolidative opacities. There is no demonstrated pleural abnormality. Normal size heart. Normal mediastinum and van. Normal visualized pulmonary arteries. Normal visualized aortic arch and descending thoracic aorta. Normal visualized thoracic spine. Normal visualized ribs, clavicles, and shoulders. There is no demonstrated abnormality of the visualized soft tissue structures of the upper abdomen. RAD/Chest 1 View (Portable) IMPRESSION: Bilateral perihilar pneumonias. Electronically Signed: Randall Buitrago MD at 23:34 EDT Tel , Service support ,
[2021-05-11] MEDS: Azithromycin 250 MG Tablet 500 MG PO (00:34)
[2021-05-11] MEDS: dexAMETHasone 4 MG Tablet 6 MG PO (00:35)
== END 2021-05-11 00:39 | disposition home or self-care (01) ==
PROVIDERS: Emergency Provider Emergency Medicine
DX: U07.1 COVID-19 (principal)
CPT/HCPCS: 71045; 99283

== ENCOUNTER → 2022-10-07 | Emergency (ER) | payer OTHER, SELFPAY ==
--- NOTE | 2022-10-07 04:22 | RAD_ITS ---
INDICATION: LT FLANK PAIN EXAMINATION/TECHNIQUE: X-RAY - XR Abdomen 1 View 2 image AP abdomen COMPARISON: None FINDINGS: BOWEL GAS PATTERN: Left upper abdominal solitary dilated loop of small bowel measuring 2.9 cm. Moderate colonic stool burden.. FREE AIR: Not well assessed on a supine view. ORGANOMEGALY: Not seen. CALCIFICATIONS: 2 mm calcification projects in the left upper bladder. BONES AND SOFT TISSUES: No acute pathology. RAD/Abdomen Single View IMPRESSION: 2 mm calcification projects in the region of the left ureterovesical junction which could represent ureteral stone. Consider renal ultrasound or CT to better evaluate for hydronephrosis. Nonspecific solitary dilated small bowel in left upper abdomen which can be seen with localized ileus from surrounding inflammation, transit distention from peristalsis, or early obstruction. CT could best further evaluate. Electronically Signed: Darrian Guido MD at 4:49 EST ,
--- NOTE | 2022-10-07 04:23 | EDS_ITS ---
HPI History of Present Illness Informant: patient Narrative Narrative: Patient presents with left flank pain that started suddenly about 5 hours ago. He was fine before that. He had not been having any nausea vomiting pain diarrhea fevers or chills. He states the pain started in the left flank and very rapidly went to the left groin. That is where it is stayed. He has some nausea but no vomiting. He has had kidney stones before and this feels exactly like them. He has not seen blood. He has never had surgery. He has never had a procedure to remove a stone. They have always passed on their own. No medical problems chronically No routine medications No known allergies Surgeries: Tonsils and adenoids Lives with family [facility] Home Medications naproxen 500 mg tablet 500 mg PO BID PRN PRN Pain Score 4-10 #20 tabs 11/06/20 [Rx Last Taken Unknown] azithromycin 250 mg tablet (Zithromax) 250 mg PO DAILY 4 days #4 tabs 05/11/21 [Rx Last Taken Unknown] dexamethasone 6 mg tablet (Decadron) 6 mg PO DAILY 7 days #7 tabs 05/11/21 [Rx Last Taken Unknown] naproxen 500 mg tablet 500 mg PO BID #14 tabs 10/07/22 [Rx Last Taken Unknown] ondansetron 4 mg disintegrating tablet 4 mg PO Q8H PRN PRN Nausea #10 tabs 10/07/22 [Rx Last Taken Unknown] oxycodone-acetaminophen 5 mg-325 mg tablet 1 tab PO Q6H PRN PRN Pain 3 days #12 TABLETS 10/07/22 [Rx Last Taken Unknown] tamsulosin 0.4 mg capsule (Flomax) 0.4 mg PO DAILY #7 caps 10/07/22 [Rx Last Taken Unknown] Allergy/AdvReac Type Severity Reaction Status Date / Time Sulfa (Sulfonamide Allergy Hives Verified 11/06/20 17:09 Antibiotics) Social History Smoking Status: Never smoker ROS ROS ED Constitutional Constitutional ED: Denies chills or fever(s) ENT ENT ED: Denies rhinorrhea or sore throat Cardiovascular Cardiovascular: Denies chest pain or palpitations Respiratory/Chest Respiratory/Chest: Denies cough or dyspnea Gastrointestinal Gastrointestinal: Reports abdominal pain and nausea; Denies constipation, diarrhea, melena or vomiting Genitourinary Genitourinary ED: Denies dysuria or hematuria Musculoskeletal Musculoskeletal: Reports back pain; Denies neck pain Integumentary Denies rash Neurologic Neurologic: Denies paresthesias or weakness Endocrine Endocrinology: Denies polydipsia or polyuria Hematologic/Lymphatic Hematologic/Lymphatic: Denies easy bleeding or easy bruising Allergic/Immunologic Allergic/Immunologic ED: Denies urticaria EXAM Physical Exam Narrative Exam Narrative: Patient awake and alert. I watched him walk back from triage. He was holding his left flank. He looks uncomfortable. HEENT shows mildly dry mucous membranes likely from hyperventilating. No trauma. No petechiae on the palate. Eyes show no icterus or pallor Lungs are clear bilaterally. No pain with a deep breath. Heart is regular I hear no murmur gallop or rub. Pulses are normal peripherally. Abdomen is soft nondistended has normal bowel sounds. Despite his discomfort he is really not having pain with palpation though. There is no hernia or mass. I do not see any skin changes or vesicles either there. does show some mild left CVA tenderness. No suprapubic tenderness. Extremities show no tenderness Neurologically is awake alert and appropriate. Normal gait other than bending over and holding his left side. His balance is normal. Skin shows no rash. MDM MDM MDM Narrative Medical decision making narrative: Patient was treated here with IV morphine, Toradol, Zofran and IV fluids. Since he has had these before, the pain was sudden onset and classic, we did not do CT scan imaging to avoid doing imaging every time he has this. We did do blood work. My independent interpretation of the patient's KUB is single small bowel loops that seems little bit distended more in the left upper quadrant rather than lower. There is questionable calcification down of the left lower pelvis. Radiology reading she sees this calcification and also the small bowel change and considers that this could be localized ileus or even early obstruction. With this information, we will add a CT of the abdomen. Patient's basic metabolic panel showed minimally low potassium at 3.3 and glucose 128. Otherwise completely normal. 04: 55 patient was rechecked and updated about the CT. He is feeling and he looks markedly better. My independent interpretation of the patient's CT scan without contrast does show a lower left UVJ stone. I do not see signs of obstruction or ileus. Final reading does show 2-1/2 mm left UVJ stone with mild hydro and additional stones in the kidneys. But no obstruction. I rechecked the patient again. He is still feeling well. We will get home with medicines. I discussed reasons to return including worsening pain, vomiting, fevers or other concerns. Lab Data Attestation: I reviewed the patient's lab results. Radiography Diagnostic Testing: Clinical Impression(s) from Imaging Studies KUB X-Ray 10/07/22 04:22 IMPRESSION: 2 mm calcification projects in the region of the left ureterovesical junction which could represent ureteral stone. Consider renal ultrasound or CT to better evaluate for hydronephrosis. Nonspecific solitary dilated small bowel in left upper abdomen which can be seen with localized ileus from surrounding inflammation, transit distention from peristalsis, or early obstruction. CT could best further evaluate. Electronically Signed: Darrian Guido MD at 4:49 EST , Abdomen/Pelvis CT 10/07/22 05:00 IMPRESSION: 2.5 mm left ureterovesical junction stone with mild hydronephrosis. Additional bilateral nonobstructive 2 and 3 mm renal stones. Electronically Signed: Darrian Guido MD at 6:15 EST , Discharge Plan Triage ED Provider: Tony Mims Dx/Rx/DC Orders Clinical Impression: Kidney stone on left side, Nausea Instructions: ED Kidney Stone w/ Colic Prescriptions: New oxycodone-acetaminophen [oxycodone-acetaminophen] 5-325 mg tablet 1 tab PO Q6H PRN PRN (Reason: Pain) 3 Days Qty: 12 0RF ondansetron [ondansetron] 4 mg tablet,disintegrating 4 mg PO Q8H PRN PRN (Reason: Nausea) Qty: 10 0RF naproxen 500 mg tablet 500 mg PO BID Qty: 14 0RF tamsulosin [Flomax] 0.4 mg capsule 0.4 mg PO DAILY Qty: 7 0RF No Action naproxen 500 MG tablet 500 mg PO BID PRN PRN (Reason: Pain Score 4-10) Qty: 20 0RF dexamethasone [Decadron] 6 mg tablet 6 mg PO DAILY 7 Days Qty: 7 0RF azithromycin [Zithromax] 250 mg tablet 250 mg PO DAILY 4 Days Qty: 4 0RF Primary Care Provider: Care Physician,No Primary Referrals: Aidan Kauffman MD [Med Staff - Active Staff] - 3-5 Days if not improving Care Physician,No Primary [Primary Care Provider] - Disposition Disposition: Home, Self Care
--- NOTE | 2022-10-07 05:00 | CT_ITS ---
INDICATION: FLANK PAIN EXAMINATION: CT ABDOMEN AND PELVIS WITHOUT CONTRAST - CT Abdomen And Pelvis W/O Contrast Injection TECHNIQUE: Helically acquired images were obtained of the abdomen and pelvis without oral or IV contrast. A radiation dose optimization technique was used for this scan. IV Contrast dosage and agent: None. Oral contrast: None. COMPARISON: November 06, 2020. FINDINGS: LOWER CHEST: Lung bases are clear. No cardiomegaly or pericardial effusion. LIVER: Homogeneous. No focal mass. GALLBLADDER AND BILIARY TREE: No calcified gallstones. No gallbladder distension or wall edema. No intra- or extrahepatic biliary ductal dilation. PANCREAS: No focal cystic or solid mass. SPLEEN: Homogeneous mild splenomegaly. ADRENAL GLANDS: No nodules. KIDNEYS AND URETERS: Mild left hydronephrosis with 2.5 mm ureterovesical junction ureteral stone. Additional 2 mm left and 3 mm right renal stones are present.. No significant perinephric inflammation. PERITONEUM: No ascites or free air. No other fluid collection. BOWEL: No evidence of acute appendicitis. No stomach or bowel distension. No focal inflammatory change. LYMPH NODES: No enlarged mesenteric or retroperitoneal lymph nodes. VESSELS: Aorta is non-dilated. URINARY BLADDER: Unremarkable. ABDOMINAL WALL: No discrete abdominal or pelvic wall hernia. BONES: No lytic or blastic abnormality. CT/Abdomen/Pelvis without Cont IMPRESSION: 2.5 mm left ureterovesical junction stone with mild hydronephrosis. Additional bilateral nonobstructive 2 and 3 mm renal stones. Electronically Signed: Darrian Guido MD at 6:15 EST ,
[2022-10-07 07:47] LABS: Anion Gap 9 (5-15); BUN 13 mg/dL (7-18); Calcium,Total 8.7 mg/dL (8.5-10.1); Chloride 107 mmol/L (98-107); EST Glomerular Filtration Rate 95 mL/min (>60); Est Glom Filt Rate - Afr Amer 115 mL/min (>60); Glucose 128 mg/dL (74-106); Potassium 3.3 mmol/L (3.5-5.1); Sodium Level 141 mmol/L (136-145)
[2022-10-07 08:20] LABS: Squamous Epithelial Cells - UA 0 SEEN /hpf (0-5); White Blood Cells 0 SEEN /hpf (0-5)
[2022-10-07 11:54] LABS: Color, Urine Yellow (Yellow); Glucose, Dipstick Normal (Normal); Ketone-Dipstick Negative (Negative); Leukocyte Esterase-Dipstick Negative /ul (Negative); Nitrite-Dipstick Negative (Negative); Occult Blood-Urine 50 /ul (Negative); Protein-Dipstick Negative (Negative); Specific Gravity, Urine 1.015 (1.002-1.030); Urine Bilirubin Dipstick Negative (Negative); Urine Clarity Clear (Clear); Urine Urobilinogen Normal (Normal)
[2022-10-07 11:55] LABS: Bacteria 1+ /hpf (None Seen); Mucous, Urine 1+ /hpf (<or=2+); Red Blood Cells-Urine 5-10 SEEN /hpf (0-5)
== END | disposition home or self-care (01) ==
PROVIDERS: Emergency Provider Emergency Medicine; Visit Provider Emergency Medicine
DX: N13.2 Hydronephrosis with renal and ureteral calculous obstruction (principal)
CPT/HCPCS: 36415; 74018; 74176; 80048; 81001; 96374; 96375; 99284; J7030; A4216; J2405

== ENCOUNTER 2022-10-09 04:09 | Emergency (ER) | payer OTHER, SELFPAY ==
[2022-10-09 04:10] VITALS: BP 144/103; PULSE 61; RESP 22; TEMP 37.1; O2SAT 98; BMI 34.7
[2022-10-09 04:45] LABS: Absolute Lymphocyte Count 1.92 X10^3/uL (0.83-4.51); Absolute Neutrophil Count 5.3 X10^3/uL (2.0-7.7); Basophil# 0.07 X10^3/uL; Basophil% 0.8 % (0-1); Eosinophil# 0.12 X10^3/uL; Eosinophils% 1.5 % (0-5); Hematocrit 43.4 % (40-54); Hemoglobin 14.5 g/dL (13.0-16.5); Lymphocyte # 1.92 X10^3/ul (0.83-4.51); Lymphocyte % 23.3 % (19-41); Mean Corp Hgb Conc 33.4 g/dL (32-36); Mean Corpuscular Hgb 27.7 pg (27.0-32.0); Mean Corpuscular Volume 82.8 fL (80-94); Mean Platelet Vol. 11.6 fl (6.2-12.0); Monocyte# 0.77 X10^3/uL; Monocyte% 9.3 % (0-10); NRBC Flagged by Analyzer 0 % (0-5); Neutrophil # 5.33 X10^3/uL (2.7-7.7); Neutrophil % 64.7 % (47-70); Platelet Count 214 K/mm3 (150-450); RBC Distribution Width CV 12.6 % (11.6-14.6); RBC Distribution Width SD 37.8 fl (35.1-43.9); Red Blood Count 5.24 M/mm3 (4.6-6.2); White Blood Count 8.2 K/mm3 (4.4-11.0)
[2022-10-09] MEDS: Ketorolac 30 MG/ML Syringe IV (05:02)
[2022-10-09] MEDS: 0.9% Normal Saline 1,000 ML 999 ML IV (05:02)
[2022-10-09 05:04] LABS: Anion Gap 7 (5-15); BUN 12 mg/dL (7-18); BUN/Creat Ratio 10.8 RATIO (10-20); Calcium,Total 8.9 mg/dL (8.5-10.1); Chloride 107 mmol/L (98-107); Creatinine, Serum 1.11 mg/dL (0.70-1.30); EST Glomerular Filtration Rate 84 mL/min (>60); Est Glom Filt Rate - Afr Amer 101 mL/min (>60); Glucose 111 mg/dL (74-106); Potassium 3.7 mmol/L (3.5-5.1); Sodium Level 142 mmol/L (136-145)
[2022-10-09 05:12] LABS: Glucose, Dipstick Normal (Normal); Ketone-Dipstick 5 mg/dl (Negative); Leukocyte Esterase-Dipstick 25 /ul (Negative); Mucous, Urine 0 SEEN /hpf (<or=2+); Nitrite-Dipstick Negative (Negative); Occult Blood-Urine 10 /ul (Negative); Protein-Dipstick 15 mg/dl (Negative); Squamous Epithelial Cells - UA 0 SEEN /hpf (0-5); Urine Bilirubin Dipstick Negative (Negative); Urine Urobilinogen 1 mg/dl (Normal)
[2022-10-09 05:20] LABS: Color, Urine Yellow (Yellow)
[2022-10-09 05:21] LABS: Bacteria RARE /hpf (None Seen); Red Blood Cells-Urine 0-5 SEEN /hpf (0-5); Urine Clarity Sl Cloudy (Clear); White Blood Cells 0-5 SEEN /hpf (0-5)
[2022-10-09] MEDS: Morphine 4 MG/ML Syringe IV (06:40)
[2022-10-09] MEDS: Ondansetron 4 MG/2 ML Vial IV (06:40)
[2022-10-09] MEDS: HYDROmorphone 1 MG/ML Syringe IV (07:23)
--- NOTE | 2022-10-09 08:11 | EX.ED.DYSGE1 ---
HPI History of Present Illness Chief Complaint: Flank Pain Narrative Narrative: Patient is a 27-year-old male with no significant past medical history who was seen recently secondary to abdominal pain and found to have a 2.5 mm kidney stone near the utero vesicular junction on left. He was prescribed Percocet and Flomax and discharged home as he had improvement of pain and no signs of acute kidney injury or urosepsis. Patient states throughout the week he has been doing well but last night into this morning the pain came on and is not responding to his prescribed medications and therefore he presents for reevaluation [facility] Home Medications naproxen 500 mg tablet 500 mg PO BID PRN PRN Pain Score 4-10 #20 tabs 11/06/20 [Rx Last Taken Unknown] naproxen 500 mg tablet 500 mg PO BID #14 tabs 10/07/22 [Rx Last Taken Unknown] ondansetron 4 mg disintegrating tablet 4 mg PO Q8H PRN PRN Nausea #10 tabs 10/07/22 [Rx Last Taken Unknown] oxycodone-acetaminophen 5 mg-325 mg tablet 1 tab PO Q6H PRN PRN Pain 3 days #12 TABLETS 10/07/22 [Rx Last Taken Unknown] tamsulosin 0.4 mg capsule (Flomax) 0.4 mg PO DAILY #7 caps 10/07/22 [Rx Last Taken Unknown] ketorolac 10 mg tablet 10 mg PO 4X/DAY PRN pain 5 days #20 tabs 10/09/22 [Rx Last Taken Unknown] oxycodone-acetaminophen 10 mg-325 mg tablet (Endocet) 1 tab PO Q6H PRN pain 3 days #12 tabs 10/09/22 [Rx Last Taken Unknown] Allergy/AdvReac Type Severity Reaction Status Date / Time Sulfa (Sulfonamide Allergy Hives Verified 10/09/22 04:13 Antibiotics) Social History Smoking Status: Never smoker ROS ROS ED Constitutional Constitutional ED: Denies chills or fever(s) ENT ENT ED: Denies sore throat Cardiovascular Cardiovascular: Denies chest pain Respiratory/Chest Respiratory/Chest: Denies cough or dyspnea Gastrointestinal Gastrointestinal: Reports abdominal pain and nausea; Denies diarrhea or vomiting Genitourinary Genitourinary ED: Denies dysuria or hematuria Musculoskeletal Musculoskeletal: Reports back pain; Denies myalgias Integumentary Denies rash Neurologic Neurologic: Denies headache(s) Hematologic/Lymphatic Hematologic/Lymphatic: Denies easy bleeding or easy bruising EXAM Physical Exam Const Vital Signs: 10/09/22 04:10 10/09/22 08:33 Temperature 98.8 F Temperature Source Temporal Pulse Rate 61 89 Respiratory Rate 22 H Blood Pressure 144/103 H 123/72 H Blood Pressure Mean 116 Pulse Ox 98 Oxygen Delivery Method Room Air Positive well nourished and well developed General Appearance ED: well developed Eyes PERRL and EOMs intact bilaterally General Eye ED: Negative for scleral icterus Neck supple Resp normal respiratory effort and clear to auscultation bilaterally Cardio regular rate and regular rhythm Rate: other Other Details: Radial pulses are plus 2 out of 4 bilaterally are equal and symmetric GI non-distended GI Narrative: Abdomen is soft and nondistended with hypoactive bowel sounds. Patient has pain on palpation along the left mid to lower abdominal region without voluntary guarding or rigidity Auscultation: hypoactive bowel sounds Palpation: soft Back/Spine Back/Spine Narrative: Positive left CVA pain Extremity normal to inspection Neuro oriented x3 and CN's II-XII intact bilaterally Sensorium / Orientation: alert Psych mental status grossly normal Skin no rashes or lesions noted Skin Narrative: No overlying soft tissue changes to suggest trauma or infection General Skin Exam: Negative for jaundice MDM MDM MDM Narrative Medical decision making narrative: Patient presented to the ER mildly hypertensive but is in pain so this is to be expected. Otherwise vitals are stable. He has a known kidney stone on the left side and is presenting with symptoms similar to renal colic. At this time I feel the need to only repeat basic labs to check for possible urosepsis or acute kidney injury. As he had a CT scan just a few days ago I do not feel there is need for repeat radiation. The blood work revealed no white count stable H&H normal electrolytes and no signs of acute kidney injury. Urine also shows no signs of infection or urosepsis. Patient was given Toradol morphine and then Dilaudid and eventually had resolution of his pain. We did talk about possible admission secondary to intractable pain but urology is not present at the hospital this weekend and he would need to be transferred for this. Patient states that as his pain is now resolved he does not wish to be transferred and will try persistent medication at home over the weekend. I elected to increase his Percocet and add Toradol as this did seem to help pain somewhat in the ER today. Patient states he is agreeable to this plan and therefore as he does not have signs of DAVE or urosepsis will be discharged home History & Record Review Discussion w/independent historian: Patient Lab Data Labs: Laboratory Results - last 24 hr 10/09/22 10/09/22 10/09/22 04:43 04:43 05:05 WBC 8.2 RBC 5.24 Hgb 14.5 Hct 43.4 MCV 82.8 MCH 27.7 MCHC 33.4 RDW Std Deviation 37.8 RDW Coeff of Walter 12.6 Plt Count 214 MPV 11.6 Immature Gran % (Auto) 0.400 Neut % (Auto) 64.7 Lymph % (Auto) 23.3 Thayer % (Auto) 9.3 Eos % (Auto) 1.5 Baso % (Auto) 0.8 Absolute Neuts (auto) 5.3 Absolute Lymphs (auto) 1.92 Nucleated RBC % 0 Sodium 142 Potassium 3.7 Chloride 107 Carbon Dioxide 28.0 Anion Gap 7 BUN 12 Creatinine 1.11 Estim Creat Clear Calc 102.30 Est GFR (MDRD) Af Amer 101 Est GFR (MDRD) Non-Af 84 BUN/Creatinine Ratio 10.8 Glucose 111 H Calcium 8.9 Urine Color Yellow Urine Clarity Sl Cloudy Urine pH 7.0 Ur Specific [place] 1.020 Urine Protein 15 H Urine Glucose (UA) Normal Urine Ketones 5 H Urine Occult Blood 10 H Urine Nitrite Negative Urine Bilirubin Negative Urine Urobilinogen 1 H Ur Leukocyte Esterase 25 H Urine RBC 0-5 SEEN Urine WBC 0-5 SEEN Ur Squamous Epith Cells 0 SEEN Urine Bacteria RARE Urine Mucus 0 SEEN Discharge Plan Triage Chief Complaint: Flank Pain ED Provider: Bairon Keyes Dx/Rx/DC Orders Clinical Impression: Kidney stone on left side, Renal colic Instructions: ED Kidney Stone w/ Colic Prescriptions: New ketorolac 10 mg tablet 10 mg PO 4X/DAY PRN (Reason: pain) 5 Days Qty: 20 0RF oxycodone-acetaminophen [Endocet] 10-325 mg tablet 1 tab PO Q6H PRN (Reason: pain) 3 Days Qty: 12 0RF No Action naproxen 500 MG tablet 500 mg PO BID PRN PRN (Reason: Pain Score 4-10) Qty: 20 0RF oxycodone-acetaminophen [oxycodone-acetaminophen] 5-325 mg tablet 1 tab PO Q6H PRN PRN (Reason: Pain) 3 Days Qty: 12 0RF ondansetron [ondansetron] 4 mg tablet,disintegrating 4 mg PO Q8H PRN PRN (Reason: Nausea) Qty: 10 0RF naproxen 500 mg tablet 500 mg PO BID Qty: 14 0RF tamsulosin [Flomax] 0.4 mg capsule 0.4 mg PO DAILY Qty: 7 0RF Primary Care Provider: Care Physician,No Primary Referrals: Aidan Kauffman MD [Med Staff - Active Staff] - Care Physician,No Primary [Primary Care Provider] - Activity Restrictions/Additional Instructions: Please stop the 5 mg Percocet and the naproxen that was given to you at your last visit and because of the worsening pain begin taking the 10 mg and Toradol for improved pain control. If you develop a fever over 100.4 or intractable pain please return to the ER for repeat evaluation. Disposition Disposition: Home, Self Care Discharge Date/Time: 10/09/22 08:33
[2022-10-09 08:33] VITALS: BP 123/72; PULSE 89
== END 2022-10-09 08:33 | disposition home or self-care (01) ==
PROVIDERS: Emergency Provider Emergency Medicine; Visit Provider Emergency Medicine
DX: N20.0 Calculus of kidney (principal)
CPT/HCPCS: 80048; 81001; 85025; 96361; 96374; 96375; 99283; J7030; A4216; J2405

== ENCOUNTER → 2023-05-31 | Outpatient (CLI) | payer OTHER, SELFPAY ==
[2023-05-31 17:07] LABS: Anion Gap 4 (5-15); BUN 14 mg/dL (7-18); Calcium,Total 8.8 mg/dL (8.5-10.1); Chloride 109 mmol/L (98-107); EST Glomerular Filtration Rate 94 mL/min (>60); Est Glom Filt Rate - Afr Amer 114 mL/min (>60); Glucose 83 mg/dL (74-106); Potassium 3.4 mmol/L (3.5-5.1); Sodium Level 142 mmol/L (136-145)
== END | disposition home or self-care (01) ==
PROVIDERS: Referring Provider Urology; Visit Provider Urology
DX: Z87.442 Personal history of urinary calculi (principal)
CPT/HCPCS: 36415; 80048

== ENCOUNTER → 2023-10-29 | Outpatient (CLI) | payer OTHER, SELFPAY ==
--- NOTE | 2023-10-29 16:11 | CYST_PTH ---
PATIENT: DENA BARRIGA LOC: [facility] U#:[id number] AGE/SX: 28/M ROOM: RE10/29/[address]: Dr. Rich Hansen MD : [id number] BED: DIS: 10/29/2023 SPEC #: [id number] RECD: 11/01/23 15:54 STATUS: JELANI BRAD #: [id number] ANTHONY: 10/29/23 16:[address]: Rich Hansen DEPT: SURGICAL PATHOLOGY RECD BY: Henri Orellana ENTERED: 11/01/23 15:55 SP TYPE: Cyst OTHR DR: No Primary Care Phys Tissues: CYST Procedures: Surgery Specimen Level III HEADER OPERATION: Excision of four cysts PRE-OP DIAGNOSIS: TISSUE SUBMITTED: A- Right forearm cyst, B- Left back cyst, C- Left abdomen/side cyst, D-Scalp/ head cyst MICROSCOPIC DIAGNOSIS A. Right forearm cyst, excision; Trichilemmal cyst with focal calcifications. B. Left back cyst, excision; Trichilemmal cyst with focal calcifications. C. Left abdomen/side cyst, excision; Trichilemmal cyst with focal calcifications. D. Head/ scalp cyst, excision; Consistent with ruptured trichilemmal cyst with focal calcification and associated with chronic inflammation and histiocytic and foreign body giant cell reaction. NATHALIA/ 11/02/2023 MICROSCOPIC DESCRIPTION Slides are reviewed. GROSS DESCRIPTION A. Received in fixative is one container labeled with the patient's name and designated Right forearm cyst. The specimen consists of a piece of woodruff nodule measuring 1.2x 1.0 x 0.7cm. This specimen is serially sectioned and reveals a cyst filled with woodruff-yellow material. Entire specimen is submitted in one cassette. B. Received in fixative is one container labeled with the patient's name and designated Left back cyst. The specimen consists of a piece of woodruff nodule measuring 1.5x 1.0 x 1.0cm. This specimen is serially sectioned and reveals a cyst filled with woodruff-yellow material. Entire specimen is submitted in one cassette. C. Received in fixative is one container labeled with the patient's name and designated Left abdomen. The specimen consists of a piece of woodruff nodule measuring 1.0x 1.0 x 1.0cm. This specimen is serially sectioned and reveals a cyst filled with woodruff-yellow material. Entire specimen is submitted in one cassette. D. Received in fixative is one container labeled with the patient's name and designated head/scalp cyst. The specimen consists of a ruptured cyst. The cyst measuring 1.4 x 1.0 x 1.0cm. A few hairs are also noted. This specimen is serially sectioned and submitted entirely in one cassette. NATHALIA/ 11/01/23 TC:5 CPT: 78434 x4
== END | disposition home or self-care (01) ==
PROVIDERS: Visit Provider Surgery
DX: L72.12 Trichodermal cyst (principal)
CPT/HCPCS: 88304